=== PATIENT | female | born 1965 | race Hispanic/Latino ===

== ENCOUNTER → 2018-09-24 | Outpatient (CLI) | payer MEDICARE ==
[~2018-09-24] MED LIST: CYCLOBENZAPRINE5 MG PO; FOLIC ACID1 MG PO; METHOTREXATE2.5 MG PO; OTEZLA PO; PANTOPRAZOLE SO40 MG PO; PEPCID20 MG PO; RASUVO; REMICADE100 MG/VIA IV; SOMA350 MG PO; SYNTHROID112 MCG PO; ULTRAM 50MG50 MG PO; XANAX0.5 MG PO
== END ==
LOC: RAD 12:15 → OR 12:15 → EDSTATUS 17:00
PROVIDERS: ATTEND Ophthalmology
DX: Z01.818 Encounter for other preprocedural examination (principal); H02.839 Dermatochalasis of unspecified eye, unspecified eyelid; Z53.8 Procedure and treatment not carried out for other reasons

== ENCOUNTER → 2018-10-15 | Day surgery (SDC) | payer MEDICARE ==
[~2018-10-15] MED LIST changes: +BALANCED SALT SOLN (OPTH) 15 ML BTL IO ONE; +FENTANYL CITRATE/PF 100MCG/2 ML INJ ONE; +IBUPROFEN400 MG PO; +LIDOCAINE 2% /EPINEPHRINE 20 ML SDV INJ ONE; +MIDAZOLAM HCL 2 MG/2 ML VIAL ONE; +NEOMYCIN/POLYMYXIN/DEX (OPTH) 3.5 GM TUBE ONE; +POVIDONE IODINE 5% (OPTH) 30 ML BTL ONE; +PROPOFOL IV EMULSION 10 MG/ML 20 ML VIAL ONE
[2018-10-15 13:45] VITALS: BP 106/57
== END | disposition home or self-care (01) ==
LOC: OR 10:13
PROVIDERS: ATTEND Ophthalmology
DX: H02.834 Dermatochalasis of left upper eyelid (principal); H02.831 Dermatochalasis of right upper eyelid; E03.9 Hypothyroidism, unspecified; M06.9 Rheumatoid arthritis, unspecified; Z88.6 Allergy status to analgesic agent; Z88.3 Allergy status to other anti-infective agents; Z91.041 Radiographic dye allergy status; Z88.0 Allergy status to penicillin; Z91.048 Other nonmedicinal substance allergy status
CPT/HCPCS: 15823; J2001; J2250; J2704